=== PATIENT | male | born 1975 | race Two or more races ===

== ENCOUNTER 2021-11-04 17:28 | Inpatient (IN) | payer OTHER ==
[~2021-11-04] VITALS: Ht 170.2 cm; Wt 70.0 kg
[2021-11-04] MEDS ORDERED: MORPHINE SULFATE 2 MG/ML SYRINGE IVP ONE (19:30)
[2021-11-04 20:14] LABS: BASOPHILS % (AUTO) 0.1 % (0.0-2.0); EOSINOPHILS % (AUTO) 1.1 % (1.0-6.0); HEMATOCRIT 47.1 % (41-53); HEMOGLOBIN 16.1 g/dL (13.5-17.5); LYMPHOCYTES # (AUTO) 1.4 K/uL (1.0-4.8); LYMPHOCYTES % (AUTO) 26.1 % (22.0-44.0); MEAN CORPUSCULAR HEMOGLOBIN 31.6 pg (26.0-34.0); MEAN CORPUSCULAR HGB CONC 34.1 G/dL (31.0-37.0); MEAN CORPUSCULAR VOLUME 93 fL (80-100); MONOCYTES # (AUTO) 0.6 K/uL (0.1-1.0); MONOCYTES % (AUTO) 11.1 % (2.0-9.0); NEUTROPHILS # (AUTO) 3.4 K/uL (1.8-7.7); NEUTROPHILS % (AUTO) 61.6 % (40.0-70.0); PLATELET COUNT (AUTO) 177 K/uL (150-450); RED BLOOD CELL COUNT(AUTO) 5.09 MIL/uL (4.50-5.90); RED CELL DISTRIBUTION WIDTH 12.9 % (11.5-14.5)
[2021-11-04 20:26] LABS: ANION GAP 8 mmol/L (8-16); CALCIUM, TOTAL 9.2 mg/dL (8.8-10.5); CARBON DIOXIDE 28 mmol/L (22-29); CHLORIDE 103 mmol/L (98-107); CREATININE 0.83 mg/dL (0.60-1.30); GLOMERULAR FILTR. RATE CALC > 60 mL/min (>60); GLUCOSE,RANDOM 102 mg/dL (70-110); SODIUM SERUM 139 mmol/L (136-145); UREA NITROGEN, BLOOD 8 mg/dL (7-18)
[2021-11-04 20:34] LABS: LACTIC ACID 1.6 mmol/L (0.4-2.0)
[2021-11-04 20:41] LABS: ALANINE AMINOTRANSFERASE 34 U/L (12-78); ALBUMIN 3.9 g/dL (3.4-5.0); ALKALINE PHOSPHATASE 97 U/L (46-116); ASPARTATE AMINOTRANSFERASE 11 U/L (15-37); BILIRUBIN,TOTAL 0.4 mg/dL (0.1-1.0); TOTAL PROTEIN, SERUM 7.6 g/dL (6.4-8.2)
[2021-11-04] MEDS: RINGERS SOLUTION,LACTATED 1,000 ML IV SCH (23:15)
[2021-11-04] MEDS ORDERED: ONDANSETRON HCL 4 MG/2 ML VIAL IVP PRN (23:15)
[2021-11-04] MEDS ORDERED: MORPHINE SULFATE 2 MG/ML SYRINGE IVP PRN (23:15)
[2021-11-04] MEDS ORDERED: IOHEXOL 350 MG/ML 100 ML VIAL ONE (23:19)
[2021-11-04] MEDS ORDERED: SODIUM CHLORIDE 0.9% 100 ML ONE (23:19)
[2021-11-05 00:04] LABS: COVID AG,FIA SOURCE NASAL SWAB
[2021-11-05 00:32] VITALS: BP 132/82
[2021-11-05 04:59] VITALS: BP 111/71
[2021-11-05] MEDS ORDERED: RINGERS SOLUTION,LACTATED 1,000 ML IV ONE (06:39)
[2021-11-05 07:10] VITALS: BP 130/74
[2021-11-05] MEDS ORDERED: LIDOCAINE 2%/EPI 1:200,000/PF 20 ML VIAL ONE (08:19)
[2021-11-05] MEDS ORDERED: BUPIVACAINE HCL/PF 0.5% 30 ML VIAL ONE (08:19)
[2021-11-05] MEDS ORDERED: MEPERIDINE-PF 25 MG/ML VIAL IVP PRN (10:00)
[2021-11-05] MEDS ORDERED: HYDROmorphone 2 MG/ML VIAL IVP PRN (10:00)
[2021-11-05] MEDS ORDERED: ONDANSETRON HCL 4 MG/2 ML VIAL IVP PRN (10:30)
[2021-11-05] MEDS ORDERED: ACETAMINOPHEN 500 MG TABLET PO PRN (10:30)
[2021-11-05] MEDS ORDERED: IBUPROFEN 800 MG TABLET PO PRN (10:30)
[2021-11-05] MEDS ORDERED: FentaNYL CITRATE PF 100 MCG/2 ML VIAL ONE (10:47)
[2021-11-05] MEDS: FentaNYL CITRATE PF 100 MCG/2 ML VIAL IVP PRN ×2 (10:48→11:01)
[2021-11-05 11:51] VITALS: BP 120/77
[2021-11-05] MEDS: HYDROCODONE/ACETAMINOPHEN 5-325 MG TABLET PO PRN ×2 (11:55→20:36)
[2021-11-05] MEDS: RINGERS SOLUTION,LACTATED 1,000 ML IV SCH (15:46)
[2021-11-05 16:09] VITALS: BP 99/59
[2021-11-05 19:55] VITALS: BP 117/60
[2021-11-05] MEDS: DOCUSATE SODIUM 100 MG CAPSULE PO SCH (20:36)
[2021-11-06] MEDS: RINGERS SOLUTION,LACTATED 1,000 ML IV SCH ×2 (00:12→07:57)
[2021-11-06 04:33] VITALS: BP 110/63
[2021-11-06] MEDS: HYDROCODONE/ACETAMINOPHEN 5-325 MG TABLET PO PRN (04:55)
[2021-11-06] MEDS ORDERED: MIDAZOLAM HCL 2 MG/2 ML VIAL IVP ONE (06:25)
[2021-11-06] MEDS ORDERED: 0.9% SODIUM CHLORIDE 10 ML VIAL IVP ONE (06:25)
[2021-11-06] MEDS ORDERED: ROCURONIUM BROMIDE 10 MG/ML 5 ML VIAL IVP ONE (06:25)
[2021-11-06] MEDS ORDERED: KETOROLAC TROMETHAMINE 60 MG/2 ML VIAL IM ONE (06:25)
[2021-11-06] MEDS ORDERED: DEXAMETHASONE SOD PHOS 4 MG/ML VIAL IVP ONE (06:25)
[2021-11-06] MEDS ORDERED: ONDANSETRON HCL 4 MG/2 ML VIAL IVP ONE (06:25)
[2021-11-06] MEDS ORDERED: LIDOCAINE/PF 2% 5 ML VIAL IM ONE (06:25)
[2021-11-06] MEDS ORDERED: PROPOFOL 1% 20 ML VIAL IVP ONE (06:25)
[2021-11-06] MEDS ORDERED: FentaNYL CITRATE PF 100 MCG/2 ML VIAL IVP ONE (06:25)
[2021-11-06] MEDS ORDERED: MORPHINE SULFATE/PF 0.5 MG/ML 10 ML AMP IVP ONE (06:25)
[2021-11-06] MEDS: DOCUSATE SODIUM 100 MG CAPSULE PO SCH (07:57)
[2021-11-06] MEDS: OXYGEN THERAPY IH SCH ×2 (07:58→08:00)
[2021-11-06 08:00] VITALS: BP 139/81
[2021-11-06] MEDS ORDERED: DOCU-119 PO (11:00)
== END 2021-11-06 11:36 | DRG 352 ==
LOC: EMS 17:30 → 6S 23:10
PROVIDERS: ADMIT Internal Medicine; ATTEND Internal Medicine
PROC: 0YU54JZ Supplement Right Inguinal Region with Synthetic Substitute, Percutaneous Endoscopic Approach (ICD-10-PCS; principal; 2021-11-05 09:00)
DX: K40.31 Unilateral inguinal hernia, with obstruction, without gangrene, recurrent (principal); N40.0 Benign prostatic hyperplasia without lower urinary tract symptoms; K76.9 Liver disease, unspecified; Z20.822 Contact with and (suspected) exposure to COVID-19
CPT/HCPCS: 74177; 80053; 83605; 85025; 87081; 99285; J0690; J1100; J1885; J2250; J2270; J2274; J2405; J2704; J3010; J3490; J7050; J7120; Q9967